=== PATIENT | male | born 1985 | race Caucasian/White ===

== ENCOUNTER 2016-04-11 12:25 | Inpatient (IN) | payer SELFPAY ==
[2016-04-11] MEDS ORDERED: SODIUM CHLORIDE 1,000 ML IV STA (13:17)
--- NOTE | 2016-04-11 13:17 | PDOC ---
History of Present Illness - General History Source: Patient Exam Limitations: No Limitations - History of Present Illness Initial Comments: 04/11/16 14:02 The patient is a 30 year old male, with no significant past medical history, who presents to the emergency department complaining of diffuse abdominal discomfort and constipation for approximately 2 weeks. The patient reports when his symptoms began he felt severely bloated and was unable to pass any stool. After approximately 5 days, the patient reports visiting his mother who provided him with tea. He states the tea temporarily him relieve some stool. The patient reports his abdominal discomfort increasingly worsened throughout the week. He states he was unable to tolerate the pain and visited an urgent care facility for further evaluation. At Urgent Care, the patient reports receiving an XR, which showed stool build up, and was recommended for an enema treatment. He reports the enema decreased his bloating, but did not relieve his abdominal discomfort. Yesterday, the patient reports receiving a call from his Urgent Care provider, who stated he had a white count and suggested he follow- up in the ED. The patient reports he was unable to sleep all of last night due to the abdominal discomfort. He describes his discomfort as a soreness similar to when you stop going to the gym and then return after a while. He reports his discomfort is worse with movement. The patient reports 1-2 episodes of night sweats, but denies any chills, cough, headache, or dizziness. The patient denies any nausea, vomiting, diarrhea, melena, or hematochezia. The patient denies any dysuria, hematuria, frequency, or urgency. The patient denies any recent travel or sick contacts. Allergies: None reported. Past Surgical History: None reported. Social History: Non-smoker. Denies alcohol or drug use. <Suellen Chávez - Last Filed: 04/11/16 16:55> <Verito Joy - Last Filed: 04/13/16 07:19> - General Chief Complaint: Pain, Acute Stated Complaint: PCP SENT,ABD PAIN, CONSTIPATED Time Seen by Provider: 04/11/16 13:04 Past History <Suellen Chávez - Last Filed: 04/11/16 16:55> - Past Medical History Other medical history: patient denies - Psycho/Social/Smoking Cessation Hx Suicidal Ideation: No Smoking History: Unknown if ever smoked Information on smoking cessation initiated: No <Verito Joy - Last Filed: 04/13/16 07:19> - Past Medical History Allergies/Adverse Reactions: Allergies Allergy/AdvReac Type Severity Reaction Status Date / Time No Known Allergies Allergy Verified 04/11/16 12:44 Home Medications: Ambulatory Orders Ciprofloxacin HCl [Cipro] 500 mg PO BID 04/11/16 Flagyl 500 mg PO BID 04/11/16 Review of Systems - Review of Systems Able to Perform ROS?: Yes Comments:: 04/11/16 14:02 GENERAL/CONSTITUTIONAL: +Night sweats. No fever or chills. No weakness. HEAD, EYES, EARS, NOSE AND THROAT: No change in vision. No ear pain or discharge. No sore throat. CARDIOVASCULAR: No chest pain or shortness of breath. RESPIRATORY: No cough, wheezing, or hemoptysis. GASTROINTESTINAL: +Diffuse abdominal discomfort, +abdominal bloating, + constipation. No nausea, vomiting, or diarrhea. GENITOURINARY: No dysuria, frequency, or change in urination. MUSCULOSKELETAL: No joint or muscle swelling or pain. No neck or back pain. SKIN: No rash NEUROLOGIC: No headache, vertigo, loss of consciousness, or change in strength/ sensation. ENDOCRINE: No increased thirst. No abnormal weight change. HEMATOLOGIC/LYMPHATIC: No anemia, easy bleeding, or history of blood clots. ALLERGIC/IMMUNOLOGIC: No hives or skin allergy. <Suellen Chávez - Last Filed: 04/11/16 16:55> *Physical Exam - Vital Signs Last Vital Signs Temp Pulse Resp BP Pulse Ox 98.1 F 96 H 19 119/83 97 04/11/16 12:44 04/11/16 12:44 04/11/16 12:44 04/11/16 12:44 04/11/16 12:44 - Physical Exam Comments: 04/11/16 14:03 GENERAL: Awake, alert, and fully oriented, in no acute distress HEAD: No signs of trauma EYES: PERRLA, EOMI, sclera anicteric, conjunctiva clear ENT: Auricles normal inspection, hearing grossly normal, nares patent, oropharynx clear without exudates. Moist mucosa NECK: Normal ROM, supple, no lymphadenopathy, JVD, or masses LUNGS: Breath sounds equal, clear to auscultation bilaterally. No wheezes, and no crackles HEART: Regular rate and rhythm, normal S1 and S2, no murmurs, rubs or gallops ABDOMEN: Diffuse moderate tenderness. Soft, normoactive bowel sounds. No guarding, no rebound. No masses EXTREMITIES: Normal range of motion, no edema. No clubbing or cyanosis. No cords, erythema, or tenderness NEUROLOGICAL: Cranial nerves II through XII grossly intact. Normal speech, normal gait SKIN: Warm, Dry, normal turgor, no rashes or lesions noted. <Suellen Chávez - Last Filed: 04/11/16 16:55> - Vital Signs Last Vital Signs Temp Pulse Resp BP Pulse Ox 98.1 F 96 H 19 119/83 97 04/11/16 12:44 04/11/16 12:44 04/11/16 12:44 04/11/16 12:44 04/11/16 12:44 <Verito Joy - Last Filed: 04/13/16 07:19> ED Treatment Course - LABORATORY CBC & Chemistry Diagram: 04/11/16 13:29 04/11/16 13:29 - ADDITIONAL ORDERS Additional order review: 04/11/16 13:29 RBC 4.58 MCV 89.5 MCHC 33.9 RDW 12.3 MPV 7.7 Neutrophils % 76.2 Lymphocytes % 11.0 Monocytes % 12.0 H Eosinophils % 0.2 Basophils % 0.6 - RADIOLOGY Radiograph Interpretation: 04/11/16 16:55 EXAM: CT Abdomen and Pelvis INTERPRETED BY: Dr. Silva REVIEWED BY: Dr. Joy IMPRESSION: Masslike density with heterogeneous attenuation/enhancement seen medial to the proximal ascending colon with significant surrounding stranding/ mesenteric edema and thickening of the medial adjacent proximal ascending colon wall. There is tubular like low-attenuation density within its center measuring 13 mm in diameter. The appendix is otherwise not discretely identified. Findings are highly suspicious for a ruptured acute appendicitis with phlegmon/ abscess formation and without definite evidence of central necrosis/ liquefaction to suggest a drainable abscess/collection. Case discussed with Dr. Verito Joy, emergency room caring attending physician. <Suellen Chávez - Last Filed: 04/11/16 16:55> - LABORATORY CBC & Chemistry Diagram: 04/12/16 06:00 04/12/16 06:00 <Verito Joy - Last Filed: 04/13/16 07:19> Medical Decision Making - Medical Decision Making 04/11/16 16:[address] Johnson at 16:57. <Suellen Chávez - Last Filed: 04/11/16 16:55> - Medical Decision Making 04/11/16 16:[address] Johnson, immigration guard for surgery. Patient is a poor operative candidate at this time due to large phlegmon. Recommended IV antibiotics, admission. <Verito Joy - Last Filed: 04/13/16 07:19> *DC/Admit/Observation/Transfer - Attestations Scribe Attestion: 04/11/16 14:03 Documentation prepared by Suellen Chávez, acting as medical records tech for Verito Joy MD. <Suellen Chávez - Last Filed: 04/11/16 16:55> - Discharge Dispostion Admit: Yes <Verito Joy - Last Filed: 04/13/16 07:19> Diagnosis at time of Disposition: Ruptured appendicitis - Discharge Dispostion Condition at time of disposition: Guarded
[2016-04-11 13:42] LABS: BASOPHIL 0.6 % (0-2.0); EOSINOPHIL 0.2 % (0-4.5); MCH 30.4 pg (25.7-33.7); MCHC 33.9 g/dl (32.0-35.9); MEAN CELL VOLUME 89.5 fl (80-96); MEAN PLT VOLUME 7.7 fl (7.5-11.1); NEUTROPHILS 76.2 % (42.8-82.8); PLATELET COUNT 274 K/MM3 (134-434); RDW 12.3 % (11.9-15.9); WHITE BLOOD COUNT 17.8 K/mm3 (4.0-10.0)
[2016-04-11] MEDS ORDERED: morphine CARPU-JECT 4 MG/1 ML DISP.SYRIN IVPUSH ONE ×2 (13:49→17:12)
[2016-04-11] MEDS ORDERED: morphine CARPU-JECT 4 MG/1 ML DISP.SYRIN ONE ×2 (13:59→17:18)
[2016-04-11 14:03] LABS: ALBUMIN 3.6 g/dl (3.4-5.0); ALK PHOS 73 U/L (45-117); ANION GAP 9 (8-16); BILIRUBIN,TOTAL 0.6 mg/dL (0.2-1.0); CALCIUM 8.9 mg/dL (8.5-10.1); CO2 31 mmol/L (21-32); GLUCOSE,RANDOM 95 mg/dL (74-106); SGPT/ALT 25 U/L (12-78); TOT PROT 7.3 g/dl (6.4-8.2)
[2016-04-11 14:06] LABS: SGOT/AST 21 U/L (15-37)
[2016-04-11 15:36] LABS: URINE APPEARANCE CLEAR; URINE BILIRUBIN NEGATIVE (NEGATIVE); URINE COLOR YELLOW; URINE GLUCOSE (UA) NEGATIVE (NEGATIVE); URINE KETONE 1+ (NEGATIVE); URINE NITRITE NEGATIVE (NEGATIVE); URINE PROTEIN NEGATIVE (NEGATIVE); URINE UROBILINOGEN 4.0 E.U/dl E.U./dl (0.2-1.0)
[2016-04-11 15:39] LABS: URINE BLOOD 1+ (NEGATIVE); URINE LEUK ESTERASE TRACE (NEGATIVE)
[2016-04-11] MEDS ORDERED: PIPERACILLIN/TAZOB 3.375 GM 3.375 GM in DEXTROSE 5%-WATER - 50 ML IVPB ONE (16:52)
[2016-04-11] MEDS ORDERED: PIPERACILLIN/TAZOB 3.375 GM 50 ML IVPB ONE (17:00)
[2016-04-11 17:09] LABS: URINE MUCUS MANY; URINE RBC 1 /hpf (0-3); URINE WBC 5 /hpf (3-5)
--- NOTE | 2016-04-11 17:43 | HP ---
<Natasha Jordan - Last Filed: 04/11/16 17:37> CHIEF COMPLAINT: abdominal pain PCP: none HISTORY OF PRESENT ILLNESS: 30year old male with no significant PMHX, presents tot he ER c/o 2 weeks history of generalized abdominal pain/soreness that has been awaking him from sleep. He first went to the [facility], there he had elevated wbc, abdominal xray showing stool. HE was sent home on cipro and flagyl and told to do an enema. He had constipation relief although the pain persisted. He also admits to having fever. Patient denies n,v, chest pain, sob, melena. Patient has not had any surgeries, no significant family history . ER course was notable for: (1)Abdominal CT showing ruptured appendix with phlegmon (2)wbc 17 (3)stable vitals Recent Travel: no PAST MEDICAL HISTORY: none PAST SURGICAL HISTORY: none Social History: Smoking: socially Alcohol: socially Drugs: occasional marijuana Family History: Allergiesno No Known Allergies Allergy (Verified 04/11/16 12:44) HOME MEDICATIONS: Home Medications Medication Instructions Recorded Ciprofloxacin HCl [Cipro] 500 mg PO BID 04/11/16 Flagyl 500 mg PO BID 04/11/16 REVIEW OF SYSTEMS CONSTITUTIONAL: Absent: fever, chills, diaphoresis, generalized weakness, malaise, loss of appetite, weight change HEENT: Absent: rhinorrhea, nasal congestion, throat pain, throat swelling, difficulty swallowing, mouth swelling, ear pain, eye pain, visual changes CARDIOVASCULAR: Absent: chest pain, syncope, palpitations, irregular heart rate, lightheadedness , peripheral edema RESPIRATORY: Absent: cough, shortness of breath, dyspnea with exertion, orthopnea, wheezing, stridor, hemoptysis GASTROINTESTINAL: Positive: abdominal pain, abdominal distension, constipation Absent: nausea, vomiting, diarrhea, , melena, hematochezia GENITOURINARY: Absent: dysuria, frequency, urgency, hesitancy, hematuria, flank pain, genital pain MUSCULOSKELETAL: Absent: myalgia, arthralgia, joint swelling, back pain, neck pain SKIN: Absent: rash, itching, pallor HEMATOLOGIC/IMMUNOLOGIC: Absent: easy bleeding, easy bruising, lymphadenopathy, frequent infections ENDOCRINE: Absent: unexplained weight gain, unexplained weight loss, heat intolerance, cold intolerance NEUROLOGIC: Absent: headache, focal weakness or paresthesias, dizziness, unsteady gait, seizure, mental status changes, bladder or bowel incontinence PSYCHIATRIC: Absent: anxiety, depression, suicidal or homicidal ideation, hallucinations. PHYSICAL EXAMINATION Vital Signs - 24 hr 04/11/16 04/11/16 12:44 16:58 Temperature 98.1 F 98.9 F Pulse Rate 96 H Pulse Rate [ 77 Apical] Respiratory 19 20 Rate Blood Pressure 119/83 Blood Pressure 136/87 [Left Arm] O2 Sat by Pulse 97 100 Oximetry (%) GENERAL: Awake, alert, and fully oriented, in no acute distress. HEAD: Normal with no signs of trauma. LUNGS: Breath sounds equal, clear to auscultation bilaterally. No wheezes, and no crackles. No accessory muscle use. HEART: Regular rate and rhythm, normal S1 and S2 without murmur, rub or gallop. ABDOMEN: Soft, tender to palpation mostly RLQ, not distended, normoactive bowel sounds, no guarding,positive rebound, no masses. No hepatomegaly or splenomegaly. MUSCULOSKELETAL: Normal range of motion at all joints. No bony deformities or tenderness. No CVA tenderness. UPPER EXTREMITIES: 2+ pulses, warm, well-perfused. No cyanosis. No clubbing. Cap refill <2 seconds. No peripheral edema. LOWER EXTREMITIES: 2+ pulses, warm, well-perfused. No calf tenderness. No peripheral edema. NEUROLOGICAL: Cranial nerves II-XII intact. Normal speech. Normal gait. PSYCHIATRIC: Cooperative. Good eye contact. Appropriate mood and affect. SKIN: Warm, dry, normal turgor, no rashes or lesions noted. Laboratory Results - last 24 hr 04/11/16 04/11/16 04/11/16 13:29 13:29 13:29 WBC 17.8 H RBC 4.58 Hgb 13.9 Hct 41.0 MCV 89.5 MCHC 33.9 RDW 12.3 Plt Count 274 MPV 7.7 Neutrophils % 76.2 Lymphocytes % 11.0 Monocytes % 12.0 H Eosinophils % 0.2 Basophils % 0.6 Sodium 137 Potassium 3.8 Chloride 97 L Carbon Dioxide 31 Anion Gap 9 BUN 10 Creatinine 1.0 Creat Clearance w eGFR > 60 Random Glucose 95 Calcium 8.9 Total Bilirubin 0.6 AST 21 ALT 25 Alkaline Phosphatase 73 Total Protein 7.3 Albumin 3.6 Lipase 74 Urine Color Yellow Urine Appearance Clear Urine pH 7.0 Ur Specific [place] 1.013 Urine Protein Negative Urine Glucose (UA) Negative Urine Ketones 1+ H Urine Blood 1+ H Urine Nitrite Negative Urine Bilirubin Negative Urine Urobilinogen 4.0 e.u/dl Ur Leukocyte Esterase Trace H Urine RBC 1 Urine WBC 5 Ur Epithelial Cells Rare Urine Mucus Many CT abdomen: IMPRESSION: Masslike density with heterogeneous attenuation/enhancement seen medial to the proximal ascending colon with significant surrounding stranding/ mesenteric edema and thickening of the medial adjacent proximal ascending colon wall. There is tubular like low-attenuation density within its center measuring 13 mm in diameter. The appendix is otherwise not discretely identified. Findings are highly suspicious for a ruptured acute appendicitis with phlegmon/ abscess formation and without definite evidence of central necrosis/ liquefaction to suggest a drainable abscess/collection. Case discussed with Dr. Verito Joy, emergency room caring attending physician. ASSESSMENT/PLAN: 30 year old male with no significant PMHS, present with a 2 week history of abdominal pain. Patient found to have ruptured appendix on abdominal CTwith phlegmon/abcess formation. Vitals are stable, pain is controlled with morphone, in IV antibiotics. 1. Appendicitis/ruptured with phlegmon/abcess:\ -NPO, IVF, pain control -IV Levaquin and IV metronidazole FEN: Fluids; 125mls/NS Electrolytes: wnl Diet: npo VTE prophylaxsis: scds Disposition: pending surgery -surgery consult; Dr. Johnson; Problem List - Problem (1) Ruptured appendicitis Code(s): K35.2 - ACUTE APPENDICITIS WITH GENERALIZED PERITONITIS Visit type - Emergency Visit Emergency Visit: Yes Care time: The patient presented to the Emergency Department on the above date and was hospitalized for further evaluation of their emergent condition. - New Patient This patient is new to me today: Yes Date on this admission: 04/11/16 - Critical Care Critical Care patient: No <Marcelo Johnson - Last Filed: 04/11/16 18:43> ATTENDING PHYSICIAN STATEMENT I saw and evaluated the patient. I reviewed the resident's note and discussed the case with the resident. I agree with the resident's findings and plan as documented. SUBJECTIVE: seen and evaluated in the ED OBJECTIVE: mild abdominal tenderness, mild rebound, no guarding ASSESSMENT AND PLAN: 30 year old man admitted for sepsis due to ruptured appendicitis -pt currently well appearing and hemodynamically stable -CT scan shows ruptured appendicitis with phlegmon -start levofloxacin/flagyl -follow up general surgery consult -pt is low risk and does not need any pre-op testing for emergent surgery
[2016-04-11 17:46] LABS: INR 1.4 (0.82-1.09); PROTHROMBIN TIME (PATIENT) 15.5 SEC (9.98-11.88)
[2016-04-11 18:29] VITALS: BMI 27.3
[2016-04-11] MEDS: SODIUM CHLORIDE 1,000 ML IV SCH (18:37)
[2016-04-11] MEDS: LEVOFLOXACIN 750 MG IVPB 150 ML IVPB SCH (18:45)
[2016-04-11] MEDS: ONDANSETRON 4 MG/2 ML VIAL IVPUSH SCH ×2 (19:42→22:23)
[2016-04-11] MEDS: METRONIDAZOLE 500 MG PREMIXED 100 ML IVPB SCH (20:23)
[2016-04-11] MEDS: morphine CARPU-JECT 2 MG/1 ML DISP.SYRIN IVPUSH PRN (22:22)
[2016-04-12] MEDS: METRONIDAZOLE 500 MG PREMIXED 100 ML IVPB SCH ×3 (02:42→17:55)
[2016-04-12] MEDS: morphine CARPU-JECT 2 MG/1 ML DISP.SYRIN IVPUSH PRN ×5 (02:42→21:53)
[2016-04-12] MEDS: ONDANSETRON 4 MG/2 ML VIAL IVPUSH SCH ×6 (02:43→21:54)
[2016-04-12 07:17] LABS: BASOPHIL 0.6 % (0-2.0); EOSINOPHIL 1.1 % (0-4.5); MCH 31.5 pg (25.7-33.7); MCHC 35.1 g/dl (32.0-35.9); MEAN CELL VOLUME 89.5 fl (80-96); MEAN PLT VOLUME 8.1 fl (7.5-11.1); NEUTROPHILS 59.5 % (42.8-82.8); PLATELET COUNT 269 K/MM3 (134-434); RDW 12.3 % (11.9-15.9); WHITE BLOOD COUNT 8.3 K/mm3 (4.0-10.0)
[2016-04-12 07:40] LABS: ALBUMIN 3.1 g/dl (3.4-5.0); ANION GAP 9 (8-16); CALCIUM 8.9 mg/dL (8.5-10.1); CO2 29 mmol/L (21-32); GLUCOSE,RANDOM 86 mg/dL (74-106); SGPT/ALT 22 U/L (12-78)
[2016-04-12 07:42] LABS: ALK PHOS 58 U/L (45-117); BILIRUBIN,TOTAL 0.6 mg/dL (0.2-1.0); SGOT/AST 23 U/L (15-37); TOT PROT 6.4 g/dl (6.4-8.2)
--- NOTE | 2016-04-12 08:13 | PN ---
Progress Note, Physician - Current Medication List Current Medications: Active Medications Metronidazole (Flagyl 500mg Premixed Ivpb -) 100 mls @ 100 mls/hr IVPB Q8H-IV [facility] Last Admin: 04/12/16 02:42 Dose: 100 mls/hr Levofloxacin (Levaquin 750 Mg Premixed Ivpb -) 150 mls @ 100 mls/hr IVPB DAILY [facility] Last Admin: 04/11/16 18:45 Dose: 100 mls/hr Sodium Chloride (Normal Saline -) 1,000 mls @ 125 mls/hr IV ASDIR [facility] Last Admin: 04/11/16 18:37 Dose: 125 mls/hr Morphine Sulfate (Morphine Injection -) 2 mg IVPUSH Q4H PRN PRN Reason: PAIN Last Admin: 04/12/16 07:14 Dose: 2 mg Ondansetron HCl (Zofran Injection) 4 mg IVPUSH Q4H [facility] Last Admin: 04/12/16 06:19 Dose: 4 mg - Objective Vital Signs: Vital Signs Temperature 98.2 F 04/12/16 01:00 Pulse Rate 72 04/12/16 01:00 Respiratory Rate 20 04/12/16 01:00 Blood Pressure 128/72 04/12/16 01:00 O2 Sat by Pulse Oximetry (%) 100 04/11/16 16:58 Constitutional: Yes: Well Nourished, No Distress, Calm Eyes: Yes: WNL, Conjunctiva Clear HENT: Yes: WNL, Atraumatic, Normocephalic Neck: Yes: WNL, Supple, Trachea Midline Cardiovascular: Yes: WNL, Regular Rate and Rhythm Respiratory: Yes: WNL, Regular, CTA Bilaterally Gastrointestinal: Yes: WNL, Normal Bowel Sounds Musculoskeletal: Yes: WNL Extremities: Yes: WNL Edema: No Integumentary: Yes: WNL Neurological: Yes: WNL, Alert, Oriented ...Motor Strength: WNL Psychiatric: Yes: WNL Labs: CBC, BMP 04/12/16 06:00 04/12/16 06:00 INR, PTT INR 1.40 (0.82-1.09) H 04/11/16 17:21 Impression/Plan Impression/Plan: 30 year old man admitted for sepsis due to ruptured appendicitis -pt currently well appearing and hemodynamically stable -CT scan shows ruptured appendicitis with phlegmon -cont levofloxacin/flagyl -follow up general surgery consult -pt is low risk and does not need any pre-op testing for emergent surgery Visit type - Emergency Visit Emergency Visit: Yes ED Registration Date: 04/11/16 Care time: The patient presented to the Emergency Department on the above date and was hospitalized for further evaluation of their emergent condition. - New Patient This patient is new to me today: No - Critical Care Critical Care patient: No
[2016-04-12] MEDS: LEVOFLOXACIN 750 MG IVPB 150 ML IVPB SCH (10:51)
--- NOTE | 2016-04-12 11:10 | CONSULT ---
Consult Consult Specialty:: Surgery-Dr. Johnson - History of Present Illness Chief Complaint: abdominal pain/pressure, ruptured appendicitis History of Present Illness: 30 yo M presented to the ED with abdominal pain for the past 2 weeks. Patient states he began having pain and pressure throughout his abdomen on March 30. The pain began all over and moved to different spots throughout his abdomen, sometimes present on the left, sometimes present on the right over the past two weeks. He says now the pain is controlled, with just some feeling of pressure. He states the pain was constant, worse at night, and was associated with constipation. The pain progressed over the past two weeks, the patient was then seen by an urgent care provider who told him he had a lot of stool backup and was given enemas. The patient was also told he had a WBC of 16 and was given antibiotics and told to come to the hospital. The patient states his appetite remained relatively the same, and he did not experience fever, chills, nausea, vomiting, or diarrhea. His last BM was this morning. He states his BM' s have been small compared to usual. - History Source History Provided By: Patient Limitations to Obtaining History: No Limitations - Past Medical History Additional Medical History: Denies any PMH - Past Surgical History Past Surgical History: Yes: None - Alcohol/Substance Use Hx Alcohol Use: Yes (occasional, socially on weekends) - Smoking History Smoking history: Current some day smoker (1-2 cigarettes socially on weekends) Have you smoked in the past 12 months: Yes <Krystal Sales - Last Filed: 04/12/16 11:30> Home Medications <Krystal Sales - Last Filed: 04/12/16 11:30> <Justino Johnson - Last Filed: 04/12/16 19:36> - Allergies Allergies/Adverse Reactions: Allergies Allergy/AdvReac Type Severity Reaction Status Date / Time No Known Allergies Allergy Verified 04/11/16 12:44 - Home Medications Home Medications: Ambulatory Orders Ciprofloxacin HCl [Cipro] 500 mg PO BID 04/11/16 Flagyl 500 mg PO BID 04/11/16 Review of Systems - Review of Systems Constitutional: denies: Chills, Fever, Loss of Appetite Cardiovascular: denies: Chest Pain, Palpitations, Shortness of Breath Respiratory: denies: Cough, SOB Gastrointestinal: reports: Abdominal Pain, Constipation. denies: Diarrhea, Melena, Nausea, Vomiting Genitourinary: denies: Burning, Dysuria Musculoskeletal: denies: Back Pain, Extremity Pain Neurological: denies: Dizziness, Headache Hematology/Lymphatic: denies: Easily Bruised, Excessive Bleeding <Krystal Sales - Last Filed: 04/12/16 11:30> Physical Exam Vital Signs: Vital Signs Temperature 98.4 F 04/12/16 09:00 Pulse Rate 62 04/12/16 09:00 Respiratory Rate 18 04/12/16 09:00 Blood Pressure 128/68 04/12/16 09:00 O2 Sat by Pulse Oximetry (%) 100 04/11/16 16:58 Constitutional: Yes: Well Nourished, No Distress, Calm Eyes: Yes: WNL HENT: Yes: Atraumatic, Normocephalic Neck: Yes: WNL Cardiovascular: Yes: Regular Rate and Rhythm Respiratory: Yes: CTA Bilaterally Gastrointestinal: Yes: Normal Bowel Sounds, Soft, Tenderness (mild tenderness with deep palp RLQ). No: Distention, Tenderness, Rebound Extremities: Yes: WNL. No: Calf Tenderness Edema: No Integumentary: Yes: WNL Neurological: Yes: WNL, Alert, Oriented Labs: CBC, BMP 04/12/16 06:00 04/12/16 06:00 <Krystal Sales - Last Filed: 04/12/16 11:30> Vital Signs: Vital Signs Temperature 97.7 F 04/12/16 17:09 Pulse Rate 67 04/12/16 17:09 Respiratory Rate 18 04/12/16 17:09 Blood Pressure 142/74 04/12/16 17:09 O2 Sat by Pulse Oximetry (%) 100 04/11/16 16:58 Labs: CBC, BMP 04/12/16 06:00 04/12/16 06:00 <Justino Johnson - Last Filed: 04/12/16 19:36> Imaging - Results Cat Scan: Report Reviewed <Krystal Sales - Last Filed: 04/12/16 11:30> Problem List - Problems (1) Ruptured appendicitis Code(s): K35.2 - ACUTE APPENDICITIS WITH GENERALIZED PERITONITIS <Krystal Sales - Last Filed: 04/12/16 11:30> Assessment/Plan Abdominal pain x2 weeks Ct- Ruptured appendicitis with phlegmon Afebrile, abdominal pain controlled, WBC improving today, 8.3 from 17.8 No surgery at this time- continue IV abx Repeat CT in 4-5 days NPO, IV fluids Rec consult IR for drainage Discussed with Dr. Johnson <Krystal Sales - Last Filed: 04/12/16 11:30> Agree Large phlegmon near right colon/appendix consistent with likely ruptured appendicitis with phlegmon WBC improved from 18 to 8 on antibiotics Continue antibiotics NPO Repeat CT in 4-5 days to look for progression of the phlegmon to a drainable abscess which can be drained by Interventional Radiology No surgery at this time <Justino Johnson - Last Filed: 04/12/16 19:36>
[2016-04-12] MEDS ORDERED: INFLUENZA VACCINE 45 MCG/0.5 ML (MDV 16-17) IM ONE (15:45)
[2016-04-12] MEDS: SODIUM CHLORIDE 1,000 ML IV SCH (20:10)
[2016-04-13] MEDS: ONDANSETRON 4 MG/2 ML VIAL IVPUSH SCH ×6 (01:58→21:12)
[2016-04-13] MEDS: METRONIDAZOLE 500 MG PREMIXED 100 ML IVPB SCH ×3 (01:59→17:43)
[2016-04-13] MEDS: morphine CARPU-JECT 2 MG/1 ML DISP.SYRIN IVPUSH PRN ×4 (07:04→23:28)
[2016-04-13] MEDS: SODIUM CHLORIDE 1,000 ML IV SCH (07:04)
[2016-04-13 07:50] LABS: MCH 31.4 pg (25.7-33.7); MCHC 35.1 g/dl (32.0-35.9); MEAN CELL VOLUME 89.4 fl (80-96); MEAN PLT VOLUME 7.7 fl (7.5-11.1); PLATELET COUNT 300 K/MM3 (134-434); RDW 12.1 % (11.9-15.9); WHITE BLOOD COUNT 8.1 K/mm3 (4.0-10.0)
[2016-04-13 08:37] LABS: CALCIUM 8.6 mg/dL (8.5-10.1)
[2016-04-13 09:18] LABS: PLATELET ESTIMATE ADEQUATE (NORMAL)
[2016-04-13] MEDS: LEVOFLOXACIN 750 MG IVPB 150 ML IVPB SCH (10:09)
--- NOTE | 2016-04-13 12:18 | PN ---
Progress Note (short form) - Note Progress Note: Had an in depth conversation with the patient and his mother over the phone in regards to the working diagnosis and management/treatment of a likely perforated appendicitis with phlegmon We discussed that any surgical intervention is not warranted at this time and would put him at a high risk for an exploratory laparotomy and right hemicolectomy We discussed that the treatment for a phlegmon is antibiotics, NPO and waiting for the phlegmon to liquify and turn into a drainable abscess that Interventional Radiology could drain We also discussed that there would be a possibility of him leaving the hospital with a drain if the collection was large enough In addition, if the repeat CT on 04/15/16 showed that the collection was not liquified enough and deemed undrainable by IR at that time, then we would have to wait longer and repeat a CT 3-5 days after to look for the phlegmon to become drainable They understand and agree with the plan Pain still present but improved No nausea/vomiting Vital Signs - 24 hr 04/12/16 04/12/16 04/12/16 14:29 17:09 21:00 Temperature 98.6 F 97.7 F Pulse Rate 61 67 Respiratory 16 18 18 Rate Blood Pressure 138/62 142/74 O2 Sat by Pulse 100 Oximetry (%) 04/13/16 04/13/16 04/13/16 02:00 06:50 09:00 Temperature 98.3 F 97.3 F L Pulse Rate 56 L 63 Respiratory 16 16 16 Rate Blood Pressure 117/55 109/74 O2 Sat by Pulse 100 Oximetry (%) 04/13/16 10:00 Temperature 97.2 F L Pulse Rate 74 Respiratory 18 Rate Blood Pressure 119/56 O2 Sat by Pulse Oximetry (%) ABd soft, Mild RLQ tenderness, no rebound CBC, BMP 04/13/16 06:00 04/13/16 06:[address] A/P with PO/IV contrast on 04/15/16 with consult to IR for possible drainage
--- NOTE | 2016-04-13 16:12 | PN ---
Progress Note, Physician - Current Medication List Current Medications: Active Medications Metronidazole (Flagyl 500mg Premixed Ivpb -) 100 mls @ 100 mls/hr IVPB Q8H-IV [facility] Last Admin: 04/13/16 09:01 Dose: 100 mls/hr Levofloxacin (Levaquin 750 Mg Premixed Ivpb -) 150 mls @ 100 mls/hr IVPB DAILY [facility] Last Admin: 04/13/16 10:09 Dose: 100 mls/hr Sodium Chloride (Normal Saline -) 1,000 mls @ 125 mls/hr IV ASDIR [facility] Last Admin: 04/13/16 07:04 Dose: 125 mls/hr Morphine Sulfate (Morphine Injection -) 2 mg IVPUSH Q4H PRN PRN Reason: PAIN Last Admin: 04/13/16 11:18 Dose: 2 mg Ondansetron HCl (Zofran Injection) 4 mg IVPUSH Q4H [facility] Last Admin: 04/13/16 13:39 Dose: 4 mg - Objective Vital Signs: Vital Signs Temperature 98.4 F 04/13/16 14:00 Pulse Rate 69 04/13/16 14:00 Respiratory Rate 18 04/13/16 14:00 Blood Pressure 112/66 04/13/16 14:00 O2 Sat by Pulse Oximetry (%) 100 04/13/16 09:00 Constitutional: Yes: Well Nourished, No Distress, Calm Eyes: Yes: WNL, Conjunctiva Clear HENT: Yes: WNL, Atraumatic, Normocephalic Neck: Yes: WNL, Supple, Trachea Midline Cardiovascular: Yes: WNL, Regular Rate and Rhythm Respiratory: Yes: WNL, Regular, CTA Bilaterally Gastrointestinal: Yes: WNL, Normal Bowel Sounds Musculoskeletal: Yes: WNL Extremities: Yes: WNL Edema: No Integumentary: Yes: WNL Neurological: Yes: WNL, Alert, Oriented ...Motor Strength: WNL Psychiatric: Yes: WNL Labs: CBC, BMP 04/13/16 06:00 04/13/16 06:00 INR, PTT INR 1.40 (0.82-1.09) H 04/11/16 17:21 Impression/Plan Impression/Plan: 30 year old man admitted for sepsis due to ruptured appendicitis -pt currently well appearing and hemodynamically stable -CT scan shows ruptured appendicitis with phlegmon -cont levofloxacin/flagyl -discussed case with general surgery and surgical debridement at this time would possibly warrant right hemicolectomy; plan is for abx over the next few days in hopes that phelmon will become more amenable to drainage by IR Visit type - Emergency Visit Emergency Visit: Yes ED Registration Date: 04/11/16 Care time: The patient presented to the Emergency Department on the above date and was hospitalized for further evaluation of their emergent condition. - New Patient This patient is new to me today: No - Critical Care Critical Care patient: No
--- NOTE | 2016-04-13 17:21 | PN ---
Physical Exam: SUBJECTIVE: Patient seen and examined , no new complaints, still with minor RLQ pain, controlled with morphine. Sips of clears today. Sched CT with possible drain in weds. OBJECTIVE: Vital Signs Period Temp Pulse Resp BP Sys/Mills Pulse Ox Last 24 Hr 97.2 F-98.4 F 56-74 16-18 109-119/55-74 100-100 GENERAL: The patient is awake, alert, and fully oriented, in no acute distress. HEAD: Normal with no signs of trauma. EYES: PERRL, extraocular movements intact, sclera anicteric, conjunctiva clear. No ptosis. ENT: Ears normal, nares patent, oropharynx clear without exudates, moist mucous membranes. NECK: Trachea midline, full range of motion, supple. LUNGS: Breath sounds equal, clear to auscultation bilaterally, no wheezes, no crackles, no accessory muscle use. HEART: Regular rate and rhythm, S1, S2 without murmur, rub or gallop. ABDOMEN: Soft, tender RLL, nondistended, normoactive bowel sounds, no guarding, no rebound, no hepatosplenomegaly, no masses. EXTREMITIES: 2+ pulses, warm, well-perfused, no edema. NEUROLOGICAL: Cranial nerves II through XII grossly intact. Normal speech, gait not observed. PSYCH: Normal mood, normal affect. SKIN: Warm, dry, normal turgor, no rashes or lesions noted Laboratory Results - last 24 hr 04/13/16 04/13/16 06:00 06:00 WBC 8.1 RBC 4.40 Hgb 13.8 Hct 39.3 MCV 89.4 MCHC 35.1 RDW 12.1 Plt Count 300 MPV 7.7 Neutrophils % 67.0 Lymphocytes % 19.0 D Monocytes % 6.0 Eosinophils % 2.0 D Myelocytes 2 Differential Comment Manual diff done Platelet Estimate Adequate Sodium 139 Potassium 4.1 Chloride 101 Carbon Dioxide 26 Anion Gap 12 BUN 13 D Creatinine 1.0 Random Glucose 63 L D Calcium 8.6 Active Medications Generic Name Dose Route Start Last Admin Trade Name Freq PRN Reason Stop Dose Admin Metronidazole 100 mls @ 100 mls/hr 04/11/16 18:00 04/13/16 09:01 Flagyl 500mg Premixed Ivpb - IVPB 100 mls/hr Q8H-IV JAEL Administration Levofloxacin 150 mls @ 100 mls/hr 04/11/16 17:30 04/13/16 10:09 Levaquin 750 Mg Premixed Ivpb - IVPB 100 mls/hr DAILY JAEL Administration Sodium Chloride 1,000 mls @ 125 mls/hr 04/11/16 17:45 04/13/16 07:04 Normal Saline - IV 125 mls/hr ASDIR JAEL Administration Morphine Sulfate 2 mg 04/11/16 17:31 04/13/16 11:18 Morphine Injection - IVPUSH 2 mg Q4H PRN Administration PAIN Ondansetron HCl 4 mg 04/11/16 17:45 04/13/16 13:39 Zofran Injection IVPUSH 4 mg Q4H JAEL Administration ASSESSMENT/PLAN: CT abdomen: IMPRESSION: Masslike density with heterogeneous attenuation/enhancement seen medial to the proximal ascending colon with significant surrounding stranding/ mesenteric edema and thickening of the medial adjacent proximal ascending colon wall. There is tubular like low-attenuation density within its center measuring 13 mm in diameter. The appendix is otherwise not discretely identified. Findings are highly suspicious for a ruptured acute appendicitis with phlegmon/ abscess formation and without definite evidence of central necrosis/ liquefaction to suggest a drainable abscess/collection. Case discussed with Dr. Verito Joy, emergency room caring attending physician. ASSESSMENT/PLAN: 30 year old male with no significant PMHS, present with a 2 week history of abdominal pain. Patient found to have ruptured appendix on abdominal CTwith phlegmon/abcess formation. Vitals are stable, pain is controlled with morphine, in IV antibiotics. 1. Appendicitis/ruptured with phlegmon/abcess:\ -sips of clears, IVF, pain control -IV Levaquin and IV metronidazole -CT scan on Wednesday possible drain placement FEN: Fluids; 125mls/NS Electrolytes: wnl Diet: sips VTE prophylaxsis: scds; ambulate Disposition: pending surgery -surgery consult; Dr. Johnson Problem List - Problems (1) Ruptured appendicitis Code(s): K35.2 - ACUTE APPENDICITIS WITH GENERALIZED PERITONITIS Visit type - Emergency Visit Emergency Visit: Yes ED Registration Date: 04/11/16 Care time: The patient presented to the Emergency Department on the above date and was hospitalized for further evaluation of their emergent condition. - New Patient This patient is new to me today: No - Critical Care Critical Care patient: No
[2016-04-14] MEDS: ONDANSETRON 4 MG/2 ML VIAL IVPUSH SCH ×6 (01:20→21:44)
[2016-04-14] MEDS: METRONIDAZOLE 500 MG PREMIXED 100 ML IVPB SCH ×3 (02:31→18:33)
[2016-04-14] MEDS: SODIUM CHLORIDE 1,000 ML IV SCH (06:03)
[2016-04-14 08:14] LABS: MCH 31.1 pg (25.7-33.7); MCHC 34.8 g/dl (32.0-35.9); MEAN CELL VOLUME 89.2 fl (80-96); MEAN PLT VOLUME 7.9 fl (7.5-11.1); PLATELET COUNT 328 K/MM3 (134-434); WHITE BLOOD COUNT 8.3 K/mm3 (4.0-10.0)
[2016-04-14 08:26] LABS: ALBUMIN 3.2 g/dl (3.4-5.0); ANION GAP 11 (8-16); BILIRUBIN,TOTAL 0.5 mg/dL (0.2-1.0); CALCIUM 8.6 mg/dL (8.5-10.1); CO2 28 mmol/L (21-32); CREATININE 0.9 mg/dL (0.7-1.3); GLUCOSE,RANDOM 72 mg/dL (74-106); SGOT/AST 31 U/L (15-37); SGPT/ALT 23 U/L (12-78); TOT PROT 6.2 g/dl (6.4-8.2)
[2016-04-14 08:27] LABS: ALK PHOS 49 U/L (45-117)
--- NOTE | 2016-04-14 11:36 | PN ---
[id number] Progress Note (short form) - Note Progress Note: PT with multiple episodes of diarrhea(not large volume) with passing of flatus. Overall his pain is improved, needing less pain medication. Vital Signs Period Temp Pulse Resp BP Sys/Mills Pulse Ox Last 24 Hr 97.7 F-98.4 F 60-69 18-20 108-124/58-67 100 PE: GEN: appears comfortable ABD: soft, non-distended, mild tenderness with deep palpation of RLQ CBC, BMP 04/14/16 06:00 04/14/16 06:00 <Janette Chopra - Last Filed: 04/14/16 11:33> - Note Progress Note: Agree Pain improved AVSS Abd soft, minimal RLQ tenderness, no rebound CBC, BMP 04/14/16 06:00 04/14/16 06:00 Continue sips of clears Antibiotics For repeat CT A/P with PO/IV contrast in am with possible IR drainage <Justino Johnson - Last Filed: 04/14/16 17:00> Problem List - Problems (1) Ruptured appendicitis Assessment/Plan: Continue current therapy, NPO/IVF/IV abx Plan for repeat ct scan tomorrow D/w Dr. Johnson Code(s): K35.2 - ACUTE APPENDICITIS WITH GENERALIZED PERITONITIS <Janette Chopra - Last Filed: 04/14/16 11:33>
[2016-04-14] MEDS: LEVOFLOXACIN 750 MG IVPB 150 ML IVPB SCH (11:43)
[2016-04-14] MEDS ORDERED: ACETAMINOPHEN 1000 MG/100 ML VIAL (NON FORMULARY) IVPB PRN (15:50)
--- NOTE | 2016-04-14 15:54 | PN ---
Physical Exam: SUBJECTIVE: Patient seen and examined, no complaints, denies pain, controlled. No n,v. Still with watery diarrhea, non foul smelling. OBJECTIVE: Vital Signs Period Temp Pulse Resp BP Sys/Mills Pulse Ox Last 24 Hr 97.7 F-98.4 F 60-78 16-20 108-124/58-80 100 GENERAL: The patient is awake, alert, and fully oriented, in no acute distress. HEAD: Normal with no signs of trauma. EYES: PERRL, extraocular movements intact, sclera anicteric, conjunctiva clear. No ptosis. ENT: Ears normal, nares patent, oropharynx clear without exudates, moist mucous membranes. NECK: Trachea midline, full range of motion, supple. LUNGS: Breath sounds equal, clear to auscultation bilaterally, no wheezes, no crackles, no accessory muscle use. HEART: Regular rate and rhythm, S1, S2 without murmur, rub or gallop. ABDOMEN: Soft, nontender, nondistended, normoactive bowel sounds, no guarding, no rebound, no hepatosplenomegaly, no masses. EXTREMITIES: 2+ pulses, warm, well-perfused, no edema. NEUROLOGICAL: Cranial nerves II through XII grossly intact. Normal speech, gait not observed. PSYCH: Normal mood, normal affect. SKIN: Warm, dry, normal turgor, no rashes or lesions noted Laboratory Results - last 24 hr 04/14/16 04/14/16 06:00 06:00 WBC 8.3 RBC 4.56 Hgb 14.2 Hct 40.7 MCV 89.2 MCHC 34.8 RDW 12.0 Plt Count 328 MPV 7.9 Neutrophils % Processing Tech Lymphocytes % Processing Tech Monocytes % Processing Tech Eosinophils % Processing Tech Basophils % Processing Tech Sodium 140 Potassium 4.3 Chloride 101 Carbon Dioxide 28 Anion Gap 11 BUN 9 D Creatinine 0.9 Creat Clearance w eGFR > 60 Random Glucose 72 L Calcium 8.6 Total Bilirubin 0.5 AST 31 D ALT 23 Alkaline Phosphatase 49 Total Protein 6.2 L Albumin 3.2 L Active Medications Generic Name Dose Route Start Last Admin Trade Name Freq PRN Reason Stop Dose Admin Acetaminophen 1,000 mg 04/14/16 15:50 Ofirmev Injection - IVPB 04/15/16 09:51 Q6H PRN FEVER OR PAIN Metronidazole 100 mls @ 100 mls/hr 04/11/16 18:00 04/14/16 10:38 Flagyl 500mg Premixed Ivpb - IVPB 100 mls/hr Q8H-IV JAEL Administration Levofloxacin 150 mls @ 100 mls/hr 04/11/16 17:30 04/14/16 11:43 Levaquin 750 Mg Premixed Ivpb - IVPB 100 mls/hr DAILY JAEL Administration Sodium Chloride 1,000 mls @ 125 mls/hr 04/11/16 17:45 04/14/16 06:03 Normal Saline - IV 125 mls/hr ASDIR JAEL Administration Morphine Sulfate 2 mg 04/11/16 17:31 04/13/16 23:28 Morphine Injection - IVPUSH 2 mg Q4H PRN Administration PAIN Ondansetron HCl 4 mg 04/11/16 17:45 04/14/16 14:23 Zofran Injection IVPUSH 4 mg Q4H JAEL Administration CT abdomen: IMPRESSION: Masslike density with heterogeneous attenuation/enhancement seen medial to the proximal ascending colon with significant surrounding stranding/ mesenteric edema and thickening of the medial adjacent proximal ascending colon wall. There is tubular like low-attenuation density within its center measuring 13 mm in diameter. The appendix is otherwise not discretely identified. Findings are highly suspicious for a ruptured acute appendicitis with phlegmon/ abscess formation and without definite evidence of central necrosis/ liquefaction to suggest a drainable abscess/collection. Case discussed with Dr. Verito Joy, emergency room caring attending physician. ASSESSMENT/PLAN: 30 year old male with no significant PMHS, present with a 2 week history of abdominal pain. Patient found to have ruptured appendix on abdominal CTwith phlegmon/abcess formation. Vitals are stable, pain is controlled with morphine, in IV antibiotics. 1. Appendicitis/ruptured with phlegmon/abcess:\ -sips of clears, IVF, pain control -IV Levaquin and IV metronidazole -CT abdomen tomorrow, possible drain placement; npo after midnight FEN: Fluids; 125mls/NS Electrolytes: wnl Diet: npo after mid VTE prophylaxsis: scds; ambulate Disposition: pending surgery -surgery consult; Dr. Johnson Problem List - Problems (1) Ruptured appendicitis Code(s): K35.2 - ACUTE APPENDICITIS WITH GENERALIZED PERITONITIS Visit type - Emergency Visit Emergency Visit: Yes ED Registration Date: 04/11/16 Care time: The patient presented to the Emergency Department on the above date and was hospitalized for further evaluation of their emergent condition. - New Patient This patient is new to me today: No - Critical Care Critical Care patient: No
--- NOTE | 2016-04-14 17:12 | PN ---
Teaching Attending Note Name of Resident: Natasha Jordan ATTENDING PHYSICIAN STATEMENT I saw and evaluated the patient. I reviewed the resident's note and discussed the case with the resident. I agree with the resident's findings and plan as documented. SUBJECTIVE:currently asymptomatic. tolerating small sips of clears. no repeated abdominal pain. denies Cp, SOB,fever, or chills OBJECTIVE: Last Vital Signs Temp Pulse Resp BP Pulse Ox 98.2 F 78 16 112/80 100 04/14/16 14:23 04/14/16 14:23 04/14/16 14:23 04/14/16 14:04/14/16 11:00 General NAD abdomen RLQ tenderness soft ND normoactive BS ASSESSMENT AND PLAN: 30yo M with no PMH presented to the ER and was admitted for further evaluation of their emergent condition 1. Ruptured appendicitis with phlegmon- clinically stable. plan for repeat CT scan in the AM to evaluate if drain by IR is possible. cont abx therapy Flagyl/ Levaquin day 4. surgery on board. pain control 2. DVT ppx- EAM
[2016-04-14] MEDS: morphine CARPU-JECT 2 MG/1 ML DISP.SYRIN IVPUSH PRN (22:35)
[2016-04-15] MEDS: METRONIDAZOLE 500 MG PREMIXED 100 ML IVPB SCH ×4 (02:50→17:15)
[2016-04-15] MEDS: ONDANSETRON 4 MG/2 ML VIAL IVPUSH SCH ×4 (04:15→14:10)
--- NOTE | 2016-04-15 08:07 | PN ---
[id number] states he is having minimal pain, not needing much pain medication. He reports many episodes of small amounts of liquid stool. He denies fever/chills/nausea/vomiting. Last Vital Signs Temp Pulse Resp BP Pulse Ox 98.5 F 54 L 20 106/52 100 04/15/16 06:22 04/15/16 06:22 04/15/16 06:22 04/15/16 06:22 04/14/16 21:00 Labs pending Exam: Gen: NAD, resting comfortably Abd: soft, nondistended, denies tenderness with palpation <Krystal Sales - Last Filed: 04/15/16 08:10> - Note Progress Note: Agree No acute events No abdominal pain AVSS Abd soft, NT CBC, BMP 04/15/16 06:00 04/15/16 06:[address]- discussed with IR No drainable collection Clears Advance diet as tolerated Continue antibiotics If tolerates diet without pain, can be discharged on PO antibiotics and schedule repeat CT Abdomen/pelvis with PO gastrograffin/IV contrast in 10-14 days If still no drainable collection at that time and there is persistent periappendiceal inflammation on CT, will need colonoscopy in 8-10 weeks to further evaluate for other etiologies <Justino Johnson - Last Filed: 04/15/16 14:15> Problem List - Problems (1) Ruptured appendicitis Assessment/Plan: Continue IV abx NPO/IVF followup repeat CT/possible IR drainage Code(s): K35.2 - ACUTE APPENDICITIS WITH GENERALIZED PERITONITIS <Krystal Sales - Last Filed: 04/15/16 08:10>
[2016-04-15 08:50] LABS: MCH 31.1 pg (25.7-33.7); MEAN CELL VOLUME 88.9 fl (80-96); MEAN PLT VOLUME 7.9 fl (7.5-11.1); PLATELET COUNT 324 K/MM3 (134-434); RDW 12.2 % (11.9-15.9); WHITE BLOOD COUNT 7.1 K/mm3 (4.0-10.0)
[2016-04-15 09:36] LABS: ALBUMIN 3.4 g/dl (3.4-5.0); ALK PHOS 48 U/L (45-117); ANION GAP 14 (8-16); BILIRUBIN,TOTAL 0.5 mg/dL (0.2-1.0); CALCIUM 8.8 mg/dL (8.5-10.1); CO2 26 mmol/L (21-32); CREATININE 0.9 mg/dL (0.7-1.3); GLUCOSE,RANDOM 78 mg/dL (74-106); SGOT/AST 95 U/L (15-37); SGPT/ALT 55 U/L (12-78); TOT PROT 6.3 g/dl (6.4-8.2)
[2016-04-15] MEDS: LEVOFLOXACIN 750 MG IVPB 150 ML IVPB SCH ×2 (10:39→12:28)
[2016-04-15] MEDS: SODIUM CHLORIDE 1,000 ML IV SCH ×2 (10:39→11:19)
[2016-04-15 11:18] LABS: PLATELET ESTIMATE ADEQUATE (NORMAL)
[2016-04-15] MEDS ORDERED: ONDANSETRON 4 MG/2 ML VIAL IVPUSH PRN (14:16)
--- NOTE | 2016-04-15 14:52 | PN ---
Physical Exam: SUBJECTIVE: Patient seen and examined, going down for abdominal CT this am. Denies any events overnight. No fever, chills, n,v, abdominal pain. Still with watery stool. OBJECTIVE: Vital Signs Period Temp Pulse Resp BP Sys/Mills Pulse Ox Last 24 Hr 97.7 F-98.6 F 54-69 16-20 106-129/52-81 100-100 GENERAL: The patient is awake, alert, and fully oriented, in no acute distress. HEAD: Normal with no signs of trauma. EYES: PERRL, extraocular movements intact, sclera anicteric, conjunctiva clear. No ptosis. ENT: Ears normal, nares patent, oropharynx clear without exudates, moist mucous membranes. NECK: Trachea midline, full range of motion, supple. LUNGS: Breath sounds equal, clear to auscultation bilaterally, no wheezes, no crackles, no accessory muscle use. HEART: Regular rate and rhythm, S1, S2 without murmur, rub or gallop. ABDOMEN: Soft, nontender, nondistended, normoactive bowel sounds, no guarding, no rebound, no hepatosplenomegaly, no masses. EXTREMITIES: 2+ pulses, warm, well-perfused, no edema. NEUROLOGICAL: Cranial nerves II through XII grossly intact. Normal speech, gait not observed. PSYCH: Normal mood, normal affect. SKIN: Warm, dry, normal turgor, no rashes or lesions noted Laboratory Results - last 24 hr 04/15/16 04/15/16 06:00 06:00 WBC 7.1 RBC 4.61 Hgb 14.3 Hct 41.0 MCV 88.9 MCHC 35.0 RDW 12.2 Plt Count 324 MPV 7.9 Neutrophils % 62.0 Lymphocytes % 26.0 D Monocytes % 11.0 H D Myelocytes 1 D Differential Comment Manual diff done Platelet Estimate Adequate Sodium 141 Potassium 4.2 Chloride 101 Carbon Dioxide 26 Anion Gap 14 BUN 7 D Creatinine 0.9 Creat Clearance w eGFR > 60 Random Glucose 78 Calcium 8.8 Total Bilirubin 0.5 AST 95 H D ALT 55 D Alkaline Phosphatase 48 Total Protein 6.3 L Albumin 3.4 Active Medications Generic Name Dose Route Start Last Admin Trade Name Freq PRN Reason Stop Dose Admin Metronidazole 100 mls @ 100 mls/hr 04/11/16 18:00 04/15/16 11:15 Flagyl 500mg Premixed Ivpb - IVPB 100 mls/hr Q8H-IV JAEL Administration Levofloxacin 150 mls @ 100 mls/hr 04/11/16 17:30 04/15/16 12:28 Levaquin 750 Mg Premixed Ivpb - IVPB 100 mls/hr DAILY JAEL Administration Sodium Chloride 1,000 mls @ 125 mls/hr 04/11/16 17:45 04/15/16 11:19 Normal Saline - IV 125 mls/hr ASDIR JAEL Administration Morphine Sulfate 2 mg 04/11/16 17:31 04/14/16 22:35 Morphine Injection - IVPUSH 2 mg Q4H PRN Administration PAIN Ondansetron HCl 4 mg 04/15/16 14:16 Zofran Injection IVPUSH Q4H PRN NAUSEA ASSESSMENT/PLAN: 30 year old male with no significant PMHS, present with a 2 week history of abdominal pain. Patient found to have ruptured appendix on abdominal CTwith phlegmon/abcess formation. Vitals are stable, pain is controlled with morphine, in IV antibiotics. CT this am did not show a significant difference from previous CT on admission, still showing ruptured appendix with abscess formation that did not liquify with IV antibiotics. If tolerates diet can be sent home and schedule for a repeat CT scan in a couple weeks. 1. Appendicitis/ruptured with phlegmon/abcess:\ -sips of clears, IVF, pain control -IV Levaquin and IV metronidazole -CT abdomen unchanged from previous, no drain palacement, cont IV antbiotic, advance diet. FEN: Fluids; po Electrolytes: wnl Diet: npo after mid VTE prophylaxsis: ambulate Disposition: if tolerate regular diet, ut home Problem List - Problems (1) Ruptured appendicitis Code(s): K35.2 - ACUTE APPENDICITIS WITH GENERALIZED PERITONITIS Visit type - Emergency Visit Emergency Visit: Yes ED Registration Date: 04/11/16 Care time: The patient presented to the Emergency Department on the above date and was hospitalized for further evaluation of their emergent condition. - New Patient This patient is new to me today: No - Critical Care Critical Care patient: No
[2016-04-15 17:04] VITALS: BP 131/80; PULSE 71; TEMP 98.1
--- NOTE | 2016-04-15 18:33 | PN ---
Teaching Attending Note Name of Resident: Natasha Jordan ATTENDING PHYSICIAN STATEMENT I saw and evaluated the patient. I reviewed the resident's note and discussed the case with the resident. I agree with the resident's findings and plan as documented. SUBJECTIVE:currently asymptomatic. no pain, N/V/C/D, fever or chills OBJECTIVE: Last Vital Signs Temp Pulse Resp BP Pulse Ox 98.1 F 71 20 131/80 100 04/15/16 17:03 04/15/16 17:03 04/15/16 17:03 04/15/16 17:03 04/15/16 09:00 General NAD abdomen soft ND/NT normoactive BS ASSESSMENT AND PLAN: 30yo M with no PMH presented to the ER and was admitted for further evaluation of their emergent condition 1. Ruptured appendicitis with phlegmon- clinically stable. repeat CT shows no change in appearance at this time and no drainable collection. will advance diet and see if he tolerates. will d/c home to complete 14 day course of abx. plan for repeat CT in 10-14 days. if there is no change will likely require colonoscopy to evaluate other possibilities of mass and r/o malignancy. CT scan to be forwarded to Dr Xiao to evaluate once its done. case d/w with both surgery and Dr Xiao. spoke with both patient and girlfriend present at bedside. answered all questions. verbalized understanding and agreed to both follow up with PMD and CT scan. referrel given for GI. 2. DVT ppx- EAM 3. d/c home if tolerates dinner
--- NOTE | 2016-04-16 16:18 | DS ---
Physical Exam: SUBJECTIVE: Patient seen and examined tolerated regular diet without any pain, nausea or vomiting. Had BM. OBJECTIVE: Vital Signs Period Temp Pulse Resp BP Sys/Mills Pulse Ox Last 24 Hr 98.1 F 71 20 131/80 PHYSICAL EXAM GENERAL: The patient is awake, alert, and fully oriented, in no acute distress. HEAD: Normal with no signs of trauma. EYES: PERRL, extraocular movements intact, sclera anicteric, conjunctiva clear. ENT: Ears normal, nares patent, oropharynx clear without exudates, moist mucous membranes. NECK: Trachea midline, full range of motion, supple. LUNGS: Breath sounds equal, clear to auscultation bilaterally, no wheezes, no crackles, no accessory muscle use. HEART: Regular rate and rhythm, S1, S2 without murmur, rub or gallop. ABDOMEN: Soft, nontender, nondistended, normoactive bowel sounds, no guarding, no rebound, no hepatosplenomegaly, no masses. EXTREMITIES: 2+ pulses, warm, well-perfused, no edema. NEUROLOGICAL: Cranial nerves II through XII grossly intact. Normal speech, gait not observed. PSYCH: Normal mood, normal affect. SKIN: Warm, dry, normal turgor, no rashes or lesions noted. LABS CBC, BMP 04/15/16 06:00 04/15/16 06:00 CT Abdomen; IMPRESSION: Mass like density with heterogeneous attenuation/ enhancement seen medial to the proximal ascending colon with significant surrounding stranding/mesenteric edema and thickening of the medial adjacent proximal ascending colon wall. There is tubular like low-attenuation density within its center measuring 13 mm in diameter. The appendix is otherwise not discretely identified. Findings are highly suspicious for a ruptured acute appendicitis with phlegmon/abscess formation and without definite evidence of central necrosis/liquefaction to suggest a drainable abscess/collection. Case discussed with Dr. Verito Joy, emergency room caring attending physician. HOSPITAL COURSE: Date of Admission:04/11/16 Date of Discharge: 04/16/16 30 year old male with no significant PMHx, presents with a 2 week history of abdominal pain. On admission, patient found to have ruptured appendix on abdominal CT with phlegmon/abscess formation. Patient was kept NPO, started on IVF, and started on IV antibiotics Levaquin and metronidazole. Patient was not a candidate for surgery at this time due to high risk for an exploratory laparotomy, right hemicolectomy, among other complications of surgery. Repeat Abdominal CT was done three days later to assess phlegmon/abscess, it was not liquified and therefore unable to drain. Patient tolerated regular diet, was sent home on the same po antibiotics to complete a 14 day course. He was advised to repeat CT in 10-[address] scan to be forwarded to Dr Xiao to evaluate once its done. Patient was also advised to follow up with primary and GI for further evaluation with colonoscopy. Minutes to complete discharge: 40 Discharge Summary Reason For Visit: RESISTANT ORGANISM Condition: Guarded - Instructions Diet, Activity, Other Instructions: Mr. Rosas, you have been diagnosed with a ruptured appendix, with a surrounding phlegmon/abscess. You are currently being treated with the appropriate antibiotics. We would like you to continue taking the antibiotics for 7 days as directed. We would like you to get another CAT Scan in two weeks, then the radiologist and surgeon will decide if drain/surgery is necessary. please call Radiology for appointment for CT scan ([phone]) you will need to apple picker contrast that you will need to drink the morning of the procedure and they will inform you when to pick this up. We also advise a colonoscopy to further evaluate your condition. We are referring you to chief librarian work with blind, Dr. Beach. You can follow up with him in 6 -8 weeks after your current issue has resolved. Increase activity as tolerated. Regular diet as tolerated. Please return to the emergency room if you experience any worsening of symptoms including nausea, vomiting, abdominal pain, fever >101.1F. Referrals: Justino Johnson MD [Staff Physician] - 2 Weeks Kash Beach MD [Staff Physician] - 06/01/16 Disposition: HOME - Home Medications Comprehensive Discharge Medication List: Ambulatory Orders Ct 1 ea NR ASDIR #1 04/15/16 Levofloxacin 750 mg PO DAILY #7 tablet 04/15/16 Metronidazole 500 mg PO TID #27 tablet 04/15/16 Problem List - Problems (1) Ruptured appendicitis Code(s): K35.2 - ACUTE APPENDICITIS WITH GENERALIZED PERITONITIS This patient is new to me today: No Emergency Visit: Yes ED Registration Date: 04/11/16 Care time: The patient presented to the Emergency Department on the above date and was hospitalized for further evaluation of their emergent condition. Critical Care patient: No - Discharge Referral Referred to [facility] No
== END 2016-04-15 19:53 | disposition home or self-care (01) | DRG 720 ==
LOC: JER 12:25 → JERBED 17:14 → UNDOADMIN 17:17 → JERBED 17:17 → J8W 18:37
PROVIDERS: ADMIT Internal Medicine; ATTEND Internal Medicine
DX: A41.9 Sepsis, unspecified organism (principal); K35.3 Acute appendicitis with localized peritonitis; R19.7 Diarrhea, unspecified
CPT/HCPCS: 36415; 74177-TC; 80048; 80053; 81003; 81015; 83690; 85025; 85610; 86850; 86900; 86901; 99284-25; G0008; Q2037; Q9967

== ENCOUNTER 2016-05-02 13:01 | Emergency (ER) | payer SELFPAY ==
[2016-05-02 13:10] VITALS: BP 129/67; PULSE 92; TEMP 98; BMI 27.2
--- NOTE | 2016-05-02 13:52 | PDOC ---
History of Present Illness - General History Source: Patient Exam Limitations: No Limitations - History of Present Illness Initial Comments: 05/02/16 19:27 The patient is a 30 year old male, with no significant past medical history, who presents to the emergency department complaining of RLQ pain and watery stools. The patient was admitted here on 04/11/16 for a ruptured appendicitis. He was scheduled for a follow-up appointment with CT scan this Wednesday but was unable to attend due to family reasons. He states he had not been scheduled for surgery yet. The patient denies any nausea, vomiting, diarrhea, melena, or hematochezia. The patient denies any dysuria, hematuria, frequency, or urgency. The patient denies any recent travel or sick contacts. Allergies: None reported. Past Surgical History: None reported. Social History: Non-smoker. Denies alcohol or drug use. <Mark Hernandez - Last Filed: 05/02/16 19:27> <Andrew Huggins - Last Filed: 05/02/16 20:12> - General Chief Complaint: Pain Stated Complaint: PAIN Time Seen by Provider: 05/02/16 13:44 Past History <Mark Hernandez - Last Filed: 05/02/16 19:27> - Past Medical History Anemia: No Asthma: No Cancer: No Cardiac Disorders: No CVA: No COPD: No CHF: No Dementia: No Diabetes: No GI Disorders: No Disorders: No HTN: No Hypercholesterolemia: No Liver Disease: No Seizures: No Thyroid Disease: No - Surgical History Abdominal Surgery: No Appendectomy: No Cardiac Surgery: No Cholecystectomy: No Lung Surgery: No Neurologic Surgery: No - Psycho/Social/Smoking Cessation Hx Anxiety: No Suicidal Ideation: No Smoking History: Never smoked Have you smoked in the past 12 months: Yes Hx Alcohol Use: Yes (SOCIAL) Drug/Substance Use Hx: No Substance Use Type: Marijuana <Andrew Huggins - Last Filed: 05/02/16 20:12> - Past Medical History Allergies/Adverse Reactions: Allergies Allergy/AdvReac Type Severity Reaction Status Date / Time No Known Allergies Allergy Verified 05/02/16 13:10 Home Medications: Ambulatory Orders NK [No Known Home Medication] 05/02/16 Review of Systems - Review of Systems Able to Perform ROS?: Yes Comments:: 05/02/16 19:27 CONSTITUTIONAL: No reported: Fever, Chills, Diaphoresis, Generalized Weakness, Malaise, Loss of Appetite HEENT: No reported: Rhinorrhea, Nasal Congestion, Throat Pain, Throat Swelling, Difficulty Swallowing, Mouth Swelling, Ear Pain, Eye Pain, Visual Changes CARDIOVASCULAR: No reported: Chest Pain, Syncope, Palpitations, Irregular Heart Rate, Lightheadedness, Peripheral Edema RESPIRATORY: No reported: Cough, Shortness of Breath, SOB with Exertion, Orthopnea, Wheezing , Stridor, Hemoptysis GASTROINTESTINAL: + RLQ pain. No reported: Abdominal Distension, Nausea, Vomiting, Diarrhea, Constipation, Melena, Hematochezia GENITOURINARY: No reported: Dysuria, Frequency, Urgency, Hesitancy, Flank Pain, Genital Pain MUSCULOSKELETAL: No reported: Myalgia, Arthralgia, Joint Swelling, Back pain, Neck Pain SKIN: No reported: Rash, Itching, Pallor HEMEATOLOGIC/IMMUNOLOGIC: No reported: Easy Bleeding, Easy Bruising, Lymphadenopathy, Frequent infections ENDOCRINE: No reported: Unexplained Weight Gain, Unexplained Weight Loss, Heat Intolerance , Cold Intolerance NEUROLOGIC: No reported: Headache, Focal Weakness, Paresthesias, Vertigo, Lightheadedness, Unsteady Gait, Seizure, Mental Status Changes, Incontinence PSYCHIATRIC: No reported: Anxiety, Depression <Mark Hernandez - Last Filed: 05/02/16 19:27> *Physical Exam - Vital Signs Last Vital Signs Temp Pulse Resp BP Pulse Ox 98.0 F 92 H 20 129/67 98 05/02/16 13:07 05/02/16 13:07 05/02/16 13:07 05/02/16 13:07 05/02/16 13:07 - Physical Exam Comments: 05/02/16 19:27 GENERAL: The patient is awake, alert, and fully oriented, Nontoxic - in no acute distress. HEAD: Normocephalic, atraumatic. EYES: extraocular movements intact, sclera anicteric, conjunctiva clear. ENT: Normal voice, Moist mucous membranes. NECK: Normal range of motion, supple LUNGS: Breath sounds equal, clear to auscultation bilaterally. No wheezes, no rhonchi, no rales. HEART: Regular rate and rhythm, normal S1 and S2 without murmur, rub or gallop. ABDOMEN: Soft, nontender, normoactive bowel sounds. No guarding, no rebound. . No CVA tenderness EXTREMITIES: Normal range of motion, no edema. No clubbing or cyanosis. No cords, erythema, or tenderness. NEUROLOGICAL: No facial assymetry, Normal speech, PSYCH: Normal mood, normal affect. SKIN: Warm, Dry, normal turgor, <Mark Hernandez - Last Filed: 05/02/16 19:27> - Vital Signs Last Vital Signs Temp Pulse Resp BP Pulse Ox 98.0 F 92 H 20 129/67 98 05/02/16 13:07 05/02/16 13:07 05/02/16 13:07 05/02/16 13:07 05/02/16 13:07 <Andrew Huggins - Last Filed: 05/02/16 20:12> ED Treatment Course - LABORATORY CBC & Chemistry Diagram: 05/02/16 13:54 05/02/16 13:54 - ADDITIONAL ORDERS Additional order review: Laboratory Results 05/02/16 13:54 Sodium 139 Potassium 4.3 Chloride 102 Carbon Dioxide 29 Anion Gap 8 BUN 20 H D Creatinine 0.9 Creat Clearance w eGFR > 60 Random Glucose 89 Calcium 9.0 Total Bilirubin 1.0 D AST 32 D ALT 60 Alkaline Phosphatase 48 Total Protein 7.1 Albumin 4.2 D 05/02/16 13:54 RBC 4.84 MCV 89.4 MCHC 34.3 RDW 12.9 MPV 7.5 Neutrophils % 48.6 D Lymphocytes % 38.4 D Monocytes % 11.3 H Eosinophils % 0.9 Basophils % 0.8 <Mark Hernandez - Last Filed: 05/02/16 19:27> - LABORATORY CBC & Chemistry Diagram: 05/02/16 13:54 05/02/16 13:54 - RADIOLOGY Radiology Studies Ordered: Category Date Time Status ABDOMEN & PELVIS CT WITH CONTR [CT] Stat CT Scan 05/02/16 13:51 Ordered <Andrew Huggins - Last Filed: 05/02/16 20:12> Medical Decision Making - Medical Decision Making 05/02/16 19:[address] reveals significantly decrased ifnlammation, appendix is 7mm with ai ir in the lumen. no fluid collection or free air. pts labs wnl pts vitals normal the pt currently asymptomatic case dw dr. Johnson - as the CT is significantly improved and pt has a soft abdomen and not currently in pain, will d/c the pt. the pt states when he is omving things/lviting things, he does feel occasional cramping in the rlq - suspect may be due to residual inflammation will d/c the pt with fu with dr. damon enxt week supportive mangaement at home return precautions were discussed I discussed the physical exam findings, ancillary test results and final diagnoses with the patient. I answered all of the patient's questions. The patient was satisfied with the care received and felt comfortable with the discharge plan and treatment plan. The patient will call their primary care physician within 24 hours to arrange follow-up and will return to the Emergency Department with any new, persistent or worsening symptoms. A portion of this note was documented by scribe services under my direction. I have reviewed the details of the note, within reason, and agree with the documentation with the following case summary and management plan written by me <Andrew Huggins - Last Filed: 05/02/16 20:12> *DC/Admit/Observation/Transfer - Attestations Scribe Attestion: 05/02/16 19:27 Documentation prepared by Mark Hernandez, acting as medical orderly for Andrew Huggins MD, . <Mark Hernandez - Last Filed: 05/02/16 19:27> - Discharge Dispostion Admit: No <Andrew Huggins - Last Filed: 05/02/16 20:12> Diagnosis at time of Disposition: RLQ abdominal pain, Ruptured appendicitis - Discharge Dispostion Disposition: HOME Condition at time of disposition: Improved - Referrals Referrals: Justino Johnson MD [Staff Physician] - - Patient Instructions Printed Discharge Instructions: DI for Appendicitis -- Adult Additional Instructions: Return to the emergency department immediately with ANY new, persistent or worsening symptoms. Your CAT scan results reveals significantly improved inflammation near your appendix. Your pain is likely secondary to residual inflammation and your exertion. Take ibuprofen or Tylenol for your pain. You MUST call and follow up with Dr. Johnson on wednesday for further evaluation of your symptoms. Results were discussed with you. Please make sure your doctor reviews the results of your emergency evaluation. Print Language: FRENCH
[2016-05-02 14:15] LABS: BASOPHIL 0.8 % (0-2.0); EOSINOPHIL 0.9 % (0-4.5); MCH 30.6 pg (25.7-33.7); MCHC 34.3 g/dl (32.0-35.9); MEAN CELL VOLUME 89.4 fl (80-96); MEAN PLT VOLUME 7.5 fl (7.5-11.1); NEUTROPHILS 48.6 % (42.8-82.8); PLATELET COUNT 175 K/MM3 (134-434); RDW 12.9 % (11.9-15.9); WHITE BLOOD COUNT 5.1 K/mm3 (4.0-10.0)
[2016-05-02 14:41] LABS: ALBUMIN 4.2 g/dl (3.4-5.0); ALK PHOS 48 U/L (45-117); ANION GAP 8 (8-16); CO2 29 mmol/L (21-32); CREATININE 0.9 mg/dL (0.7-1.3); GLUCOSE,RANDOM 89 mg/dL (74-106); SGOT/AST 32 U/L (15-37); SGPT/ALT 60 U/L (12-78); TOT PROT 7.1 g/dl (6.4-8.2)
== END 2016-05-02 20:36 | disposition home or self-care (01) ==
LOC: JER 13:01
DX: K36 Other appendicitis (principal)
CPT/HCPCS: 36415; 74177-TC; 80053; 85025; 99283-25